=== PATIENT | female | born 1960 | race Caucasian/White ===

== ENCOUNTER 2019-02-01 09:45 | Emergency (ER) | payer BC, MEDICARE ==
[~2019-02-01] VITALS: Ht 167.6 cm; Wt 55.8 kg
[~2019-02-01 09:45] MED LIST: ALENDRONATE SOD70 MG PO; AMBIEN5 MG PO; AMIODARONE HCL200 MG PO; CARISOPRODOL350 MG PO; COZAAR25 MG PO; GABAPENTIN300 MG PO; HYDROCODON-ACE1 EAC5 PO; LEVAQUIN500 MG PO; LIDODERM700 MG TOP; LUNESTA3 MG PO; METOPROLOL SUCC50 MG PO; METRONIDAZOLE500 MG PO; MULTAQ400 MG PO; ONDANSETRON HCL4 MG PO; PANTOPRAZOLE SO40 MG PO; SYNTHROID25 MCG PO; VITAMIN D5000 UNIT PO; XARELTO15 MG PO; ZORVOLEX PO; [UNRECOGNIZED DRUG - OTHER] PO
--- OUTSIDE RECORDS SUMMARY | 2019-02-01 09:48 | XMS REPORT ---
Author Author [facility] Address Unknown Phone Unavailable Care Team Providers Care Forestry Foreman Name Role Phone VINCENT MOLINA Unavailable Unavailable Problems This patient has no known problems. Allergies, Adverse Reactions, Alerts This patient has no known allergies or adverse reactions. Medications This patient has no known medications. Results Test Description Test Time Test Comments Text Results Atomic Results Result Comments TROPONIN-I Quantitative 2018-09-22 05:29:00 Troponin-I (test code=TROP) <0.015 ng/ml 0.000-0.034 The 99th Percentile URL is 0.045 ng/mL for the Siemens [place] Troponin I. The Joint Society of Cardiology/[place] College of Cardiology (ESC/ACC) and the National Academy of Clinical Biochemistry Standards of Laboratory Practices (NACB) recommends that the diagnosis of AMI includes the presence of clinical history suggestive of Acute Coronary Syndrome (ACS) and a maximum concentration of cardiac troponin exceeding the 99th percentile of a normal reference population [upper reference limit (URL)] on at least one occasion during the first 24 hours after the clinical event. CBC WITH AUTO [id number] 05:24:00* Test Item Value Reference Range Comments WBC (test code=WBC) 6.07 10\S\3/ul 4.80-10.80 RBC (test code=RBC) 3.41 10\S\6/ul 4.20-5.40 Hemoglobin (test code=HGB) 11.8 gm/dl 12.0-14.0 Hematocrit (test code=HCT) 35.6 % 37.0-47.0 MCV (test code=MCV) 104.4 fL 81.0-99.0 MCH (test code=MCH) 34.6 pg 27.0-31.0 MCHC (test code=MCHC) 33.1 gm/dl 33.0-37.0 RDW (test code=RDWVC) 11.8 % 11.5-14.5 Platelet (test code=PLT) 175 10\S\3/ul 130-400 MPV (test code=MPV) 9.0 fL 7.4-10.4 NE% (test code=NE) 65.8 % 42.0-75.0 LY% (test code=LY) 25.9 % 13.0-42.0 MO% (test code=MO) 6.3 % 4.0-14.0 EO% (test code=EO) 1.0 % 1.0-5.0 BA% (test code=BA) 0.8 % 0.0-3.0 IG% (test code=IG%) 0.2 % 0.0-0.4 [id number] 05:24:00* Test Item Value Reference Range Comments Magnesium (test code=MG) 2.3 mg/dl 1.6-2.3 [id number] 05:24:00* Test Item Value Reference Range Comments Glucose (test code=GLU) 95 mg/dl 75-110 BUN (test code=BUN) 18.0 mg/dl 6.0-17.0 Creatinine (test code=CREA) 0.9 mg/dl 0.4-1.2 Sodium (test code=NA) 142 mmol/l 137-145 Potassium (test code=K) 3.6 mmol/l 3.5-5.0 Chloride (test code=CL) 110 mmol/l 98-107 CO2 (test code=CO2) 26 mmol/l 22-30 Calcium (test code=CALC) 8.8 mg/dl 8.4-10.2 T Protein (test code=TP) 7.6 gm/dl 5.1-8.7 Albumin (test code=ALB) 4.4 gm/dl 3.5-4.6 A/G Ratio (test code=AGRAT) 1.4 % 1.1-2.2 AST (SGOT) (test code=AST) 27 U/L 11-36 ALT (SGPT) (test code=ALT) 25 U/L 11-40 Alkaline Phos (test code=ALKP) 45 U/L 47-114 Total Bilirubin (test code=TBIL) 0.6 mg/dl 0.2-1.2 Globulin (test code=GLOBU) 3.2 gm/dl 2.3-3.5 Calcium, Corrected (test code=CALCCORR) 8.5 mg/dl 8.4-10.2 Various formulas exist for corrected serum calcium results, each yielding different values. This corrected result was based on the formula: Corrected Calcium=SerumCalcium + [0.8 * ( 4 - SerumAlbumin)] EGFR if (test code=EGFRAA) >60 mL/min/1.73m\S\2 EGFR if Non- (test code=EGFRNA) >60 mL/min/1.73m\S\2 Estimated Glomerular Filtration Rate (eGFR) Reference Intervals Decision Points for 18 years and older and average body mass: >=60 Does not exclude kidney disease. 30 - 59 Suggests moderate chronic kidney disease and indicates the need for further investigation including assessment of proteinuria and cardiovascular factors. < 30 Usually indicates a need for referral for assessment and management of chronic kidney failure. SCR MAMM BILATERAL YARI CAD [id number] 10:55:30 - SCR MAMM BILATERAL YARI CAD DIGITALBILATERAL DIGITAL SCREENING MAMMOGRAM 3D/2D WITH CAD: 03/24/2018CLINICAL: Asymptomatic. Digital breast tomosynthesis was performed in addition to routine CC and MLO views. Current mammographic images were evaluated by either a [employer] M-Vu or a [employer] ImageStoriecker CAD (computer aided detection system). Comparison is made to exam dated 09/29/2010 mammogram - [facility]. There are scattered fibroglandular tissues in both manuel sts. No suspicious mass, architectural distortion, malignant type calcification , or lymph node abnormality detected. Breast architecture is stable compared to prior exams.IMPRESSION: NEGATIVEThere is no mammographic evidence of malignancy. Resume annual screening mammography in one year. Laila sierra/tawanna nrad:04/08/2018 10:55:30 Panel Machine Setter: Helene AKERS, [facility]-FWletter sent: BIRADS 1-2 Normal Mammogram BI-RADS: 1 Negative
--- OUTSIDE RECORDS SUMMARY | 2019-02-01 09:48 | XMS REPORT | Summary of Care ---
Author Author [facility] - Health Organization [facility] - Health Address Unknown Phone Unavailable Care Team Providers Care Calculating Machine Operator Name Role Phone Mao Willett PCP Reason for Visit * Reason Comments Medical Records Encounter Details Care Team Description Date Type Department Shannon Wiggins MD [address] [place] [address]. 5[address] [place] [address] Medical Records 12/14/[address] [address] Allergies No Known Allergiesdocumented as of this encounter (statuses as of 12/14/2018) Medications End Date Status Medication Sig Dispensed Refills Start Date Active traMADOL (ULTRAM) 50 mg Take 1 Tab by 60 Tab 1 tablet mouth every 6 2 (six) hours. Active eszopiclone (LUNESTA) 3 Take 3 mg by 0 mg tablet mouth at bedtime. Active HYDROcodone-acetaminophen Take 1 Tab by 0 (NORCO) 10-325 mg tablet mouth every 6 (six) hours as needed. Active losartan (COZAAR) 50 mg Take 50 mg by 0 tablet mouth daily. Active gabapentin (NEURONTIN) Take 300 mg 0 300 mg capsule by mouth every 8 (eight) hours as needed. Active aspirin (LO-DOSE ASPIRIN) Take 81 mg by 0 81 mg EC tablet mouth daily. Active levothyroxine (SYNTHROID) Take 25 mcg 0 25 mcg tablet by mouth every morning. Active metoprolol succinate XL Take 50 mg by 0 (TOPROL XL) 50 mg 24 hr mouth daily. tablet documented as of this encounter (statuses as of 12/14/2018) Active Problems No known active problemsdocumented as of this encounter (statuses as of 12/14/2018) Social History Date Tobacco Use Types Packs/Day Years Used Light Tobacco Smoker 0.25 Smokeless Tobacco: Never Used Comments: 2 aday Drinks/Week oz/Week Comments Alcohol Use Not Currently Sex Assigned at Date Recorded Not on file Industry Job Start Date Occupation Not on file Not on file Not on file Travel End Travel History Travel Start No recent travel history available. documented as of this encounter Last Filed Vital Signs Not on filedocumented in this encounter Plan of Treatment Health Maintenance Due Date Last Done Comments HEPATITIS C (HCV) SCREEN 1962 PNEUMOCOCCAL 0-64 YEARS 1968 COMBINED SERIES (1 of 1 - PPSV23) DTaP,Tdap,and Td Vaccines 1981 (1 - Tdap) PAP SMEAR 10/18/1983 MAMMOGRAM 2002 COLONOSCOPY 2012 Zoster Recombinant 2012 Vaccine (SHINGRIX) (1 of 2) LUNG CANCER SCREEN: 2017 Recommended for age 55-80 with 30 + pack year history INFLUENZA VACCINE 01/08/2019 documented as of this encounter Results Not on filedocumented in this encounter Insurance Type Payer Benefit Subscriber ID Effective Phone Address Plan / Dates Group Medicare Adv PPO [facility] [id number] 2018-P MANAGED MEDICARE HEALTHCARE resent MEDICARE GOLD documented as of this encounter
--- OUTSIDE RECORDS SUMMARY | 2019-02-01 09:48 | XMS REPORT | Continuity of Care Document ---
Author Author [facility] Address [address] [place] [address] ;ext= Care Team Providers Care Inspector Hot Forgings Name Role Phone VINCENT MOLINA Admsunni VINCENT MOLINA [facility] Admission Diagnosis Code Admission Diagnosis Date [id number] Chest pain Social History Element Description Code Description Smoking Status Code System Start Date End Date Smoking Status [id number] Current every day smoker SNOMED-CT Problems Code Code System Problem Name Start Date End Date Status Muscle spasms 09/22/2018 Active Medications RxNorm Medication Dose Route Instructions Indications Start Date End Date Status [id number] Diazepam 5 MG Oral Tablet 5 milligram oral orally 2 times per day as needed. (for muscle spasm) Active Allergies * No Known Allergies Results Laboratory Results Order: CBC PLATELET AUTO DIFF Specimen Source: BLOOD Body Site: [facility] Test Result Flag Range Unit Date 1Leukocytes^^corrected for nucleated erythrocytes:NCnc:Pt:Bld:Qn:Automated count 6.07 4.80-10.80 10^3/ul 09/22/2018 04:52 789-8 1Erythrocytes:NCnc:Pt:Bld:Qn:Automated count 3.41 L 4.20-5.40 10^6/ul 09/22/2018 04:52 718-7 1Hemoglobin:MCnc:Pt:Bld:Qn 11.8 L 12.0-14.0 gm/dl 09/22/2018 04:52 4544-3 1Hematocrit:VFr:Pt:Bld:Qn:Automated count 35.6 L 37.0-47.0 % 09/22/2018 04:52 787-2 1Erythrocyte mean corpuscular volume:EntVol:Pt:RBC:Qn:Automated count 104.4 H 81.0-99.0 fL 09/22/2018 04:52 785-6 1Erythrocyte mean corpuscular hemoglobin:EntMass:Pt:RBC:Qn:Automated count 34.6 H 27.0-31.0 pg 09/22/2018 04:52 786-4 1Erythrocyte mean corpuscular hemoglobin concentration:MCnc:Pt:RBC:Qn:Automated count 33.1 33.0-37.0 gm/dl 09/22/2018 04:52 788-0 1Erythrocyte distribution width:Ratio:Pt:RBC:Qn:Automated count 11.8 11.5-14.5 % 09/22/2018 04:52 777-3 1Platelets:NCnc:Pt:Bld:Qn:Automated count 175 130-400 10^3/ul 09/22/2018 04:52 90268-6 1Platelet mean volume:EntVol:Pt:Bld:Qn:Automated count 9.0 A 7.4-10.4 fL 09/22/2018 04:52 770-8 1Neutrophils/100 leukocytes:NFr:Pt:Bld:Qn:Automated count 65.8 42.0-75.0 % 09/22/2018 04:52 736-9 1Lymphocytes/100 leukocytes:NFr:Pt:Bld:Qn:Automated count 25.9 13.0-42.0 % 09/22/2018 04:52 5905-5 1Monocytes/100 leukocytes:NFr:Pt:Bld:Qn:Automated count 6.3 4.0-14.0 % 09/22/2018 04:52 713-8 1Eosinophils/100 leukocytes:NFr:Pt:Bld:Qn:Automated count 1 1.0-5.0 % 09/22/2018 04:52 706-2 1Basophils/100 leukocytes:NFr:Pt:Bld:Qn:Automated count 0.8 0.0-3.0 % 09/22/2018 04:52 1IG% 0.2 0.0-0.4 % 09/22/2018 04:52 * Performing Lab Footnotes:* [address] [place], [place] [id number] - [address] [address] [facility] - MD: DIRECTOR TIMO WATKINS Order: CMP COMPREHENSIVE METABOLIC PANEL Specimen Source: BLOOD Body Site: INC Test Result Flag Range Unit Date 1Glucose 95 75-110 mg/dl 09/22/2018 04:52 1BUN 18 H 6.0-17.0 mg/dl 09/22/2018 04:52 1Creatinine 0.9 0.4-1.2 mg/dl 09/22/2018 04:52 1Sodium 142 137-145 mmol/l 09/22/2018 04:52 1Potassium 3.6 3.5-5.0 mmol/l 09/22/2018 04:52 1Chloride 110 H 98-107 mmol/l 09/22/2018 04:52 1CO2 26 22-30 mmol/l 09/22/2018 04:52 1Calcium 8.8 8.4-10.2 mg/dl 09/22/2018 04:52 1T Protein 7.6 5.1-8.7 gm/dl 09/22/2018 04:52 1Albumin 4.4 3.5-4.6 gm/dl 09/22/2018 04:52 1A/G Ratio 1.4 1.1-2.2 % 09/22/2018 04:52 1AST (SGOT) 27 11-36 U/L 09/22/2018 04:52 1ALT (SGPT) 25 11-40 U/L 09/22/2018 04:52 1Alkaline Phos 45 L 47-114 U/L 09/22/2018 04:52 1Total Bilirubin 0.6 0.2-1.2 mg/dl 09/22/2018 04:52 1Globulin 3.2 2.3-3.5 gm/dl 09/22/2018 04:52 1Calcium, Corrected 8.5 8.4-10.2 mg/dl 09/22/2018 04:52 Note: Various formulas exist for corrected serum calcium results, each yielding different values. This corrected result was based on the formula: Corrected Calcium=SerumCalcium + [0.8 * ( 4 - SerumAlbumin)] 1EGFR if >60 mL/min/1.73m^2 09/22/2018 04:52 1EGFR if Non- >60 mL/min/1.73m^2 09/22/2018 04:52 Note: Estimated Glomerular Filtration Rate (eGFR) Reference Intervals Decision Points for 18 years and older and average body mass: >=60 Does not exclude kidney disease. 30 - 59 Suggests moderate chronic kidney disease and indicates the need for further investigation including assessment of proteinuria and cardiovascular factors. < 30 Usually indicates a need for referral for assessment and management of chronic kidney failure. * Performing Lab Footnotes:* [address] [place], [place] [id number] [place] [address] DEBRA Fournier MD: DIRECTOR TIMO WATKINS Order: MAGNESIUM SERUM Specimen Source: BLOOD Body Site: LOINC Test Result Flag Range Unit Date 1Magnesium 2.3 1.6-2.3 mg/dl 09/22/2018 04:52 * Performing Lab Footnotes:* [address] [place], [place] [id number] [place] [address] DEBRA Fournier MD: DIRECTOR TIMO WATKINS Order: TROPONIN I QUANTITATIVE Specimen Source: BLOOD Body Site: LOINC Test Result Flag Range Unit Date 1Troponin-I <0.015 0.000-0.034 ng/ml 09/22/2018 04:52 Note: The 99th Percentile URL is 0.045 ng/mL for the Siemens [place] Troponin I. The Joint Society of Cardiology/[place] College of Cardiology (ESC/ACC) and the National [...] first 24 hours after the clinical event. * Performing Lab Footnotes:* [address] [place] [address] - [id number] - [address] [place] [address] DEBRA - MD: DIRECTOR TIMO WATKINS Vital Signs Vitals Value Date Body Temperature 97.9 F 09/22/2018 Pulse Rate 73 (beats)/min 09/22/2018 Respiratory Rate 17 (breaths)/min 09/22/2018 O2% BldC Oximetry 99 % 09/22/2018 BP Systolic 140 mmHg 09/22/2018 BP Diastolic 78 mmHg 09/22/2018 Height 67 in 09/22/2018 Weight Measured 120 lbs 09/22/2018 BSA (Body Surface Area) 1.17834 m2 09/22/2018 BMI (Body Mass Index) 18.8 kg/m2 09/22/2018 Advance Directives Patient does NOT have Living Will Directive Type Effective Date Plasma Processing Centrifuge Operator Notes Supporting Document Name Address Phone No Directive Type specified 09/22/2018 04:44 Not Specified Not Specified Not Specified None No Family History * No Data Reported Plan of Care * No data in the system Procedures * No data in the system Encounters Date Code Diagnosis Status (ICD10) - I16353 OTHER MUSCLE SPASM Active Immunizations * No data in the system Functional Status * No data in the system Hospital Discharge Instructions * Discharge Instructions 2* Discharge Diagnosis* muscle spasm * Important Information* Consult your physician or return to the Emergency Department immediately if worse, if not better as expected, or if any problems arise. * Follow Up Care* Yes * Important Information* Please understand that you have received care only on an emergency basis. If your condition does not improve, you should call your personal physician for follow-up care. If you do not have a physician, you may call the referred physician listed. * If you have questions about your care or these discharge instructions, you may call the Emergency Department. Please take your discharge paperwork with you to any follow-up appointments. * Follow-Up With:* Primary Care Physician * Follow-Up Notes:* follow up with pcp in 1-2 days * Activity Level* As tolerated, unrestricted * Diet* Regular * Prescriptions Given Via:* Printed and given to patient/caregiver. * Patient Teaching* Patient education provided * Disease Process * Change in Care * Procedures/Treatments * Pain Control
--- OUTSIDE RECORDS SUMMARY | 2019-02-01 09:48 | XMS REPORT | Summary of Care ---
Author Author [facility] - Health Organization [facility] - Health Address Unknown Phone Unavailable Care Team Providers Care Hatchery Employee Name Role Phone Mao Willett PCP Reason for Visit * Reason Comments Follow-up Encounter Details Care Team Description Date Type Department Shannon Wiggins MD [address] [place] [address]. [address] [place] [address] Cervical radiculopathy (Primary Dx) 12/07/2018 Office Visit [facility] Neurosurgery, [address] [address] Allergies No Known Allergiesdocumented as of this encounter (statuses as of 12/07/2018) Medications End Date Status Medication Sig Dispensed [...] as of this encounter (statuses as of 12/07/2018) Active Problems No known active problemsdocumented as of this encounter (statuses as of 12/07/2018) Social History Date Tobacco Use Types Packs/Day [...] of this encounter Last Filed Vital Signs Reading Time Taken Comments Vital Sign - - Blood Pressure - - Pulse - - Temperature - - Respiratory Rate - - Oxygen Saturation - - Inhaled Oxygen Concentration 54.4 kg (120 lb) 12/07/2018 2:08 PM CDT Weight 170.2 cm (5' 7") 12/07/2018 2:08 PM CDT Height 18.79 12/07/2018 2:08 PM CDT Body Mass Index documented in this encounter Progress Notes * Shannon Wiggins MD - 12/07/2018 2:20 PM CDT Neurosurgery Follow Up Clinic Note 12/07/2018 HPI: Ana Palma is a 58 year old woman following up in neurosurgery clinic for CT myelogram Cspine. She states that she continues to have pain in her mid-low back all the way down her back and down her left lateral thigh, not all the way down to her feet as before. But, she states she lives with back pain all the time. She had to get a new mattress because she has been having worse pain. She contin ues to have diffuse neck pain as well. She also has numbness and paraesthesias i n a nondermatomal distribution in her arms as well and her left leg. Current Medications: Current Outpatient Medications on File Prior to Visit Medication Sig Dispense Refill aspirin (LO-DOSE ASPIRIN) 81 mg EC tablet Take 81 mg by mouth daily. eszopiclone (LUNESTA) 3 mg tablet Take 3 mg by mouth at bedtime. gabapentin (NEURONTIN) 300 mg capsule Take 300 mg by mouth every 8 (eight) h ours as needed. HYDROcodone-acetaminophen (NORCO) 10-325 mg tablet Take 1 Tab by mouth every 6 (six) hours as needed. levothyroxine (SYNTHROID) 25 mcg tablet Take 25 mcg by mouth every morning. losartan (COZAAR) 50 mg tablet Take 50 mg by mouth daily. metoprolol succinate XL (TOPROL XL) 50 mg 24 hr tablet Take 50 mg by mouth d aily. traMADOL (ULTRAM) 50 mg tablet Take 1 Tab by mouth every 6 (six) hours. 60 T ab 1 No current facility-administered medications on file prior to visit. Review of Systems Constitutional: negative Eyes: negative Ears: negative Nose/Sinuses: negative Mouth/Throat: negative Cardiovascular: negative Respiratory: negative Gastrointestinal: negative Genitourinary: negative Musculoskeletal: Low back pain and left leg pain Integumentary: negative Neuro: Numbness and paraesthesias in arms, left leg Physical Exam: Vitals: 12/07/18 1408 Weight: 120 lb (54.4 kg) Height: 5' 7" (1.702 m) Normocephalic Moves all extremities symmetrically Imaging: CT myelogram Cspine 11/2018 was reviewed with the patient and does not show any s ignificant spinal stenosis or neuroforaminal stenosis. She has bony fusion from previous C3-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 Assessment/Plan: Ana Palma is a 58 year old female with neck pain and low back and leg pain. Results of CT myelogram were shown and explained to the patient. She does not n eed surgical intervention at this time for cervical spine. She is in agreement f or conservative management. She continues to follow with pain management for ANA s. She has not done PT in a while and she was given a script for aqua therapy. Follow up in neurosurgery clinic in 2-3 months. Shannon Wiggins M.D., Ph.D. Neurosurgery Pager: [phone] 12/07/2018 documented in this encounter Plan of Treatment Health [...] Results Not on filedocumented in this encounter Visit Diagnoses Diagnosis Cervical radiculopathy - Primary Brachial neuritis or radiculitis nos documented in this encounter Insurance Type Payer Benefit Subscriber ID Effective Phone Address Plan / Dates Group Medicare Adv PPO [facility] [id number] 2018-P MANAGED MEDICARE HEALTHCARE resent MEDICARE [place] documented as of this encounter
--- OUTSIDE RECORDS SUMMARY | 2019-02-01 09:48 | XMS REPORT | Summary of Care ---
Author Author [facility] - Health Organization [facility] - Health Address Unknown Phone Unavailable Care Team Providers Care Blade Grader Operator Name Role Phone Mao Willett PCP Reason for Visit * Reason Comments Follow-up Encounter Details Care Team Description Date Type Department Shannon Wiggins MD [address] [place] [address]. [address] [place] [address] Cervical radiculopathy (Primary Dx) 12/07/2018 Office Visit [facility] Neurosurgery, [address] [address] Allergies No Known Allergiesdocumented as [...] fusion from previous C3-[address] myelogram Lsocala shows left L5-S1 disc herniation with left [...] months. Shannon Wiggins M.D., Ph.D. Neurosurgery Pager: [phone] 12/07/2018 documented in this encounter Plan of [...] Plan / Dates Group Medicare Adv PPO [facility] [id number] 2018-P MANAGED MEDICARE HEALTHCARE resent MEDICARE [place] documented as of this encounter
[2019-02-01 10:27] LABS: BASOPHILS # (AUTO) 0.1 (0.0-0.1); BASOPHILS % 1.2 % (0.0-1.0); EOSINOPHILS # (AUTO) 0.1 (0.0-0.4); HEMATOCRIT 37.9 % (34.2-44.1); HEMOGLOBIN 12.6 g/dL (12.0-16.0); LYMPHOCYTES # (AUTO) 1.5 (1.0-3.2); MEAN CORPUSCULAR HEMOGLOBIN 36.5 pg (28-32); MEAN CORPUSCULAR HGB CONC 33.2 g/dL (31-35); MEAN CORPUSCULAR VOLUME 109.9 fL (81-99); MONOCYTES # (AUTO) 0.2 (0.2-0.8); MONOCYTES % 4.4 % (4.4-11.3); NEUTROPHILS # (AUTO) 3.1 (2.1-6.9); PLATELET COUNT 177 x10e3/uL (140-360); RED BLOOD COUNT 3.45 x10e6/uL (3.6-5.1); RED CELL DISTRIBUTION WIDTH 11.4 % (11.7-14.4)
[2019-02-01 10:33] LABS: BILIRUBIN,URINE NEGATIVE (NEGATIVE); CLARITY,URINE SL CLOUDY (CLEAR); COLOR,URINE YELLOW (YELLOW); KETONES,URINE NEGATIVE (NEGATIVE); LEUKOCYTE ESTERASE ,URINE NEGATIVE (NEGATIVE); NITRITE,URINE NEGATIVE (NEGATIVE); PROTEIN,URINE DIPSTICK TRACE (NEGATIVE); URINE UROBILINOGEN 0.2 mg/dL (0.2 - 1)
[2019-02-01 10:36] LABS: INR 0.95; PROTHROMBIN TIME 13.2 seconds (11.9-14.5)
--- NOTE | 2019-02-01 10:36 | Diagnostic Imaging Report ---
EXAMINATION: CHEST SINGLE (PORTABLE) INDICATION: Headache. Hypertension. ^HTN ^[id number] ^1014 COMPARISON: None FINDINGS: TUBES and LINES: Left chest dual lead cardiac device. LUNGS: Lungs are well inflated. Lungs are clear. There is no evidence of pneumonia or pulmonary edema. PLEURA: No pleural effusion or pneumothorax. HEART AND MEDIASTINUM: The cardiomediastinal silhouette is unremarkable. BONES AND SOFT TISSUES: No acute osseous lesion. Soft tissues are unremarkable. UPPER ABDOMEN: No free air under the diaphragm. IMPRESSION: No acute thoracic abnormality. Signed by: Dr. Andrea Morales M.D. on 02/01/2019 10:32 AM
[2019-02-01 10:37] LABS: PARTIAL THROMBOPLASTIN TIME 31.4 seconds (23.8-35.5)
[2019-02-01 10:44] LABS: ALBUMIN/GLOBULIN RATIO 1.4 (0.8-2.0); ANION GAP 11.1 mmol/L (8-16); CALCIUM 9.4 mg/dL (8.4-10.2); CREATININE, SERUM 1.06 mg/dL (0.57-1.11); MAGNESIUM 2.1 MG/DL (1.3-2.1); POTASSIUM 4.1 mmol/L (3.5-5.1)
[2019-02-01 10:48] LABS: BACTERIA,URINE RARE /HPF; EPITHELIAL CELLS,URINE FEW /LPF; RBC,URINE 0-5 /HPF (0-5); WBC,URINE (MAN) 0-5 /HPF (0-5)
[2019-02-01] MEDS ORDERED: KETOROLAC TROMETHAMINE 30 MG/ML VIAL IV ONE (11:05)
[2019-02-01] MEDS ORDERED: DIPHENHYDRAMINE HCL INJ 50 MG/ML VIAL IV ONE (11:15)
[2019-02-01] MEDS ORDERED: METOCLOPRAMIDE HCL 10 MG/2ML VIAL IV ONE (11:15)
[2019-02-01] MEDS ORDERED: SODIUM CHLORIDE 0.9% 500ML 500 ML IV ONE (11:15)
--- NOTE | 2019-02-01 11:56 | Diagnostic Imaging Report ---
Exam: Head CT without contrast History: Headache Comparison studies: None Technique: Axial images were obtained from the skull base to the vertex. Coronal and sagittal images reconstructed from the axial data. Dose modulation, iterative reconstruction, and/or weight based adjustment of the mA/kV was utilized to reduce the radiation dose to as low as reasonably achievable. Radiation dose: Total DLP: 921 mGy*cm. Estimated effective dose: DLP x 0.015 Intravenous contrast: None Findings: Scalp: No abnormalities. Bones: No fractures, blastic or lytic lesions. Brain sulci: Appropriate for age. Ventricles: Normal in size and configuration. No hydrocephalus. Extra-axial spaces: No masses, no fluid collection. Parenchyma: No abnormal densities. No masses, acute hemorrhage, acute or chronic vascular insults. Sellar/suprasellar region: No abnormalities. Craniocervical junction: Patent foramen magnum. No Chiari one malformation. Included paranasal sinuses: Clear. Incidental aplastic left frontal sinus, an anatomical variant. IMPRESSION: No intracranial abnormalities. Signed by: Dr. Db Russo M.D. on 02/01/2019 10:47 AM
[2019-02-01 13:52] VITALS: BP 164/87
== END 2019-02-01 13:55 | disposition home or self-care (01) ==
LOC: ER 09:47
DX: G44.211 Episodic tension-type headache, intractable (principal)
CPT/HCPCS: 36415; 70450; 71045; 80053; 81001; 82550; 82553; 83735; 83880; 84484; 85025; 85610; 85730; 87086; 93005; 99284; J1200; J1885; J2765; J7040

== ENCOUNTER 2020-02-29 07:39 | Observation (INO) | payer MEDICARE, OTHER ==
[~2020-02-29] VITALS: Ht 167.6 cm; Wt 55.8 kg
[2020-02-29] VITALS (7 sets, daily range): BP systolic 111–153; BP diastolic 70–102
[2020-02-29] MEDS ORDERED: ONDANSETRON HCL INJ 2MG/ML 2ML 2 MG/ML VIAL IV STA (08:03)
[2020-02-29] MEDS ORDERED: MORPHINE SULFATE INJ 4 MG/ML INJ 1ML IV ONE (08:15)
[2020-02-29 08:18] LABS: BASOPHILS # (AUTO) 0.1 (0.0-0.1); BASOPHILS % 1.3 % (0.0-1.0); EOSINOPHILS # (AUTO) 0.2 (0.0-0.4); EOSINOPHILS % 3.3 % (0.0-6.0); HEMATOCRIT 39.4 % (34.2-44.1); HEMOGLOBIN 12.7 g/dL (12.0-16.0); LYMPHOCYTES # (AUTO) 1.6 (1.0-3.2); LYMPHOCYTES % 34.9 % (18.0-39.1); MEAN CORPUSCULAR HEMOGLOBIN 34.9 pg (28-32); MEAN CORPUSCULAR HGB CONC 32.2 g/dL (31-35); MEAN CORPUSCULAR VOLUME 108.2 fL (81-99); MONOCYTES # (AUTO) 0.3 (0.2-0.8); MONOCYTES % 6.6 % (4.4-11.3); NEUTROPHILS # (AUTO) 2.4 (2.1-6.9); NEUTROPHILS % 53.7 % (38.7-80.0); PLATELET COUNT 172 x10e3/uL (140-360); RED BLOOD COUNT 3.64 x10e6/uL (3.6-5.1); RED CELL DISTRIBUTION WIDTH 11.4 % (11.7-14.4)
[2020-02-29] MEDS ORDERED: SODIUM CHLORIDE 0.9% 500ML 500 ML ONE (08:27)
[2020-02-29 08:44] LABS: ALANINE AMINOTRANSFERASE 35 IU/L (0-55); ALBUMIN 4.4 g/dL (3.5-5.0); ALBUMIN/GLOBULIN RATIO 1.8 (0.8-2.0); ALKALINE PHOSPHATASE 43 IU/L (40-150); ANION GAP 14.1 mmol/L (8-16); BLOOD UREA NITROGEN 18 mg/dL (7-26); BUN/CREATININE RATIO 21 (6-25); CALCIUM 9.1 mg/dL (8.4-10.2); CARBON DIOXIDE 27 mmol/L (22-29); CHLORIDE 105 mmol/L (98-107); CREATINE KINASE 621 IU/L (29-168); CREATININE, SERUM 0.87 mg/dL (0.57-1.11); EST GLOMERULAR FILTRATION RATE > 60 ML/MIN (60-); GLUCOSE 96 mg/dL (74-118); POTASSIUM 4.1 mmol/L (3.5-5.1); SODIUM 142 mmol/L (136-145)
[2020-02-29] MEDS ORDERED: IOPAMIDOL 370 MG/ML 200 ML INFUS..BTL INJ ONE (08:59)
[2020-02-29] MEDS ORDERED: SODIUM CHLORIDE 0.9% 50ML 50 ML ONE (08:59)
[2020-02-29 09:30] LABS: CLARITY,URINE CLEAR (CLEAR); COLOR,URINE YELLOW (YELLOW)
[2020-02-29 09:31] LABS: BILIRUBIN,URINE NEGATIVE (NEGATIVE); KETONES,URINE TRACE (NEGATIVE); LEUKOCYTE ESTERASE ,URINE NEGATIVE (NEGATIVE); NITRITE,URINE NEGATIVE (NEGATIVE); PROTEIN,URINE DIPSTICK NEGATIVE (NEGATIVE); URINE UROBILINOGEN 0.2 mg/dL (0.2 - 1)
[2020-02-29 09:47] LABS: WBC,URINE (MAN) 0-5 /HPF (0-5)
[2020-02-29 09:48] LABS: BACTERIA,URINE RARE /HPF; EPITHELIAL CELLS,URINE FEW /LPF
[2020-02-29] MEDS ORDERED: LUNESTA1 MG PO (12:58)
[2020-02-29] MEDS ORDERED: METHOCARBAMOL750 MG PO (12:58)
[2020-02-29] MEDS ORDERED: HYDROCODON-ACE1 EAC9 PO (12:58)
[2020-02-29] MEDS: SODIUM CHLORIDE 0.9% 1000ML 1,000 ML IV SCH (13:20)
[2020-02-29] MEDS ORDERED: METHOCARBAMOL 750 MG TAB PO PRN (13:45)
[2020-02-29] MEDS ORDERED: HYDROMORPHONE 1MG/1ML INJ IV PRN (13:45)
[2020-02-29] MEDS ORDERED: NON-FORMULARY MEDICATION (Cholecalciferol (Vitamin D3) (Vitamin D) 50,000 UNIT) PO SCH (13:45)
[2020-02-29] MEDS: HYDROCODONE/APAP 10MG-325MG TAB PO SCH ×2 (17:02→22:58)
[2020-02-29] MEDS: ZOLPIDEM TARTRATE 5 MG TAB PO SCH (20:43)
[2020-02-29] MEDS ORDERED: ESZOPICLONE 5 MG PO SCH (21:00)
[2020-02-29] MEDS ORDERED: PANTOPRAZOLE SOD 40 MG TABEC PO SCH (21:00)
[2020-03-01] VITALS (8 sets, daily range): BP systolic 105–151; BP diastolic 70–85
[2020-03-01] MEDS: SODIUM CHLORIDE 0.9% 1000ML 1,000 ML IV SCH ×4 (00:19→18:35)
[2020-03-01] MEDS: METOCLOPRAMIDE HCL 10 MG/2ML VIAL IV SCH ×4 (02:00→17:33)
[2020-03-01] MEDS: HYDROCODONE/APAP 10MG-325MG TAB PO SCH ×3 (06:00→17:33)
[2020-03-01 06:11] LABS: BASOPHILS % 0.8 % (0.0-1.0); EOSINOPHILS # (AUTO) 0.2 (0.0-0.4); EOSINOPHILS % 4.1 % (0.0-6.0); HEMATOCRIT 32.1 % (34.2-44.1); HEMOGLOBIN 10.3 g/dL (12.0-16.0); LYMPHOCYTES # (AUTO) 1.7 (1.0-3.2); LYMPHOCYTES % 43.7 % (18.0-39.1); MEAN CORPUSCULAR HEMOGLOBIN 34.9 pg (28-32); MEAN CORPUSCULAR HGB CONC 32.1 g/dL (31-35); MEAN CORPUSCULAR VOLUME 108.8 fL (81-99); MONOCYTES # (AUTO) 0.3 (0.2-0.8); NEUTROPHILS # (AUTO) 1.7 (2.1-6.9); NEUTROPHILS % 44.1 % (38.7-80.0); PLATELET COUNT 123 x10e3/uL (140-360); RED BLOOD COUNT 2.95 x10e6/uL (3.6-5.1); RED CELL DISTRIBUTION WIDTH 11.3 % (11.7-14.4)
[2020-03-01] MEDS: LEVOTHYROXINE SODIUM 25 MCG TABLET PO SCH (06:22)
[2020-03-01] MEDS: METRONIDAZOLE 500MG/NS 100ML 100 ML IV SCH ×3 (06:22→22:33)
[2020-03-01 06:37] LABS: ALANINE AMINOTRANSFERASE 25 IU/L (0-55); ALBUMIN 3.3 g/dL (3.5-5.0); ALBUMIN/GLOBULIN RATIO 1.7 (0.8-2.0); ALKALINE PHOSPHATASE 38 IU/L (40-150); ANION GAP 11.3 mmol/L (8-16); BLOOD UREA NITROGEN 16 mg/dL (7-26); BUN/CREATININE RATIO 22 (6-25); CALCIUM 7.9 mg/dL (8.4-10.2); CARBON DIOXIDE 26 mmol/L (22-29); CHLORIDE 109 mmol/L (98-107); CREATINE KINASE 329 IU/L (29-168); CREATININE, SERUM 0.74 mg/dL (0.57-1.11); EST GLOMERULAR FILTRATION RATE > 60 ML/MIN (60-); GLUCOSE 74 mg/dL (74-118); LIPASE 7 U/L (8-78); MAGNESIUM 2.2 MG/DL (1.3-2.1); POTASSIUM 4.3 mmol/L (3.5-5.1); SODIUM 142 mmol/L (136-145)
[2020-03-01] MEDS: LACTOBACILLUS ACIDOPHILUS CAPSULE PO SCH ×3 (07:54→22:33)
[2020-03-01] MEDS: PANTOPRAZOLE 40 MG 10ML VIAL IV SCH ×2 (08:51→22:33)
[2020-03-01] MEDS: METOPROLOL SUCCINATE 50 MG TAB XL PO SCH (11:04)
[2020-03-01] MEDS: LOSARTAN POTASSIUM 25 MG TAB PO SCH (11:04)
[2020-03-01] MEDS: AMIODARONE HCL 200 MG TAB PO SCH (11:04)
[2020-03-01] MEDS ORDERED: PROPOFOL IV EMULSION 10 MG/ML 20 ML VIAL ONE (12:28)
[2020-03-01] MEDS: ZOLPIDEM TARTRATE 5 MG TAB PO SCH (21:00)
[2020-03-01] MEDS ORDERED: BISACODYL 5 MG TAB EC PO ONE ×2 (23:15→23:45)
[2020-03-02] MEDS ORDERED: BISACODYL 5 MG TAB EC PO ONE ×2 (00:15→00:45)
[2020-03-02] MEDS: METOCLOPRAMIDE HCL 10 MG/2ML VIAL IV SCH ×5 (00:50→23:56)
[2020-03-02] MEDS: SODIUM CHLORIDE 0.9% 1000ML 1,000 ML IV SCH ×3 (02:30→17:42)
[2020-03-02 04:43] VITALS: BP 138/77
[2020-03-02] MEDS ORDERED: CITRATE OF MAGNESIA 300ML BOTTLE PO ONE ×3 (05:00→11:00)
[2020-03-02 06:15] LABS: BASOPHILS # (AUTO) 0.1 (0.0-0.1); BASOPHILS % 1.3 % (0.0-1.0); EOSINOPHILS # (AUTO) 0.2 (0.0-0.4); EOSINOPHILS % 3.8 % (0.0-6.0); HEMATOCRIT 38.4 % (34.2-44.1); HEMOGLOBIN 12.5 g/dL (12.0-16.0); LYMPHOCYTES # (AUTO) 1.1 (1.0-3.2); LYMPHOCYTES % 24.3 % (18.0-39.1); MEAN CORPUSCULAR HEMOGLOBIN 34.6 pg (28-32); MEAN CORPUSCULAR HGB CONC 32.6 g/dL (31-35); MEAN CORPUSCULAR VOLUME 106.4 fL (81-99); MONOCYTES # (AUTO) 0.3 (0.2-0.8); MONOCYTES % 7.1 % (4.4-11.3); NEUTROPHILS # (AUTO) 2.8 (2.1-6.9); NEUTROPHILS % 63.1 % (38.7-80.0); PLATELET COUNT 158 x10e3/uL (140-360); RED BLOOD COUNT 3.61 x10e6/uL (3.6-5.1); RED CELL DISTRIBUTION WIDTH 11.1 % (11.7-14.4)
[2020-03-02 06:32] LABS: ALANINE AMINOTRANSFERASE 26 IU/L (0-55); ALBUMIN/GLOBULIN RATIO 1.7 (0.8-2.0); ALKALINE PHOSPHATASE 34 IU/L (40-150); ANION GAP 10.7 mmol/L (8-16); BLOOD UREA NITROGEN 6 mg/dL (7-26); BUN/CREATININE RATIO 8 (6-25); CALCIUM 9.2 mg/dL (8.4-10.2); CARBON DIOXIDE 24 mmol/L (22-29); CHLORIDE 111 mmol/L (98-107); CREATININE, SERUM 0.78 mg/dL (0.57-1.11); EST GLOMERULAR FILTRATION RATE > 60 ML/MIN (60-); GLUCOSE 81 mg/dL (74-118); POTASSIUM 3.7 mmol/L (3.5-5.1); SODIUM 142 mmol/L (136-145)
[2020-03-02] MEDS: HYDROCODONE/APAP 10MG-325MG TAB PO SCH ×5 (06:43→23:57)
[2020-03-02] MEDS: LEVOTHYROXINE SODIUM 25 MCG TABLET PO SCH (06:43)
[2020-03-02] MEDS: METRONIDAZOLE 500MG/NS 100ML 100 ML IV SCH ×3 (06:43→21:31)
[2020-03-02 07:16] LABS: FERRITIN 52.7 ng/mL (4.63-204.00)
[2020-03-02] MEDS: LACTOBACILLUS ACIDOPHILUS CAPSULE PO SCH ×3 (07:25→20:09)
[2020-03-02 08:00] VITALS: BP 126/85
[2020-03-02] MEDS: PANTOPRAZOLE 40 MG 10ML VIAL IV SCH ×2 (08:11→21:31)
[2020-03-02] MEDS: AMIODARONE HCL 200 MG TAB PO SCH (09:00)
[2020-03-02] MEDS: METOPROLOL SUCCINATE 50 MG TAB XL PO SCH (09:00)
[2020-03-02] MEDS: LOSARTAN POTASSIUM 25 MG TAB PO SCH (09:00)
[2020-03-02 10:28] VITALS: BP 126/85
[2020-03-02 13:01] LABS: WBC,FECAL (FECAL LACTOFERRIN) NEGATIVE (NEGATIVE)
[2020-03-02 16:00] VITALS: BP 137/92
[2020-03-02] MEDS: ZOLPIDEM TARTRATE 5 MG TAB PO SCH (20:08)
[2020-03-02 20:39] VITALS: BP 110/87
[2020-03-02 20:54] VITALS: BP 110/87
[2020-03-03 00:22] VITALS: BP 103/66
[2020-03-03] MEDS ORDERED: SODIUM CHLORIDE FLUSH 10 ML SYR INJ PRN (01:45)
[2020-03-03] MEDS: SODIUM CHLORIDE 0.9% 1000ML 1,000 ML IV SCH (02:30)
[2020-03-03] MEDS: HYDROCODONE/APAP 10MG-325MG TAB PO SCH ×2 (05:30→12:24)
[2020-03-03] MEDS: METRONIDAZOLE 500MG/NS 100ML 100 ML IV SCH ×2 (05:30→14:48)
[2020-03-03] MEDS: LEVOTHYROXINE SODIUM 25 MCG TABLET PO SCH (05:30)
[2020-03-03] MEDS: METOCLOPRAMIDE HCL 10 MG/2ML VIAL IV SCH ×2 (05:30→12:24)
[2020-03-03 05:43] VITALS: BP 102/89
[2020-03-03] MEDS ORDERED: ALENDRONATE SODIUM 70 MG TAB PO SCH (06:30)
[2020-03-03] MEDS: LACTOBACILLUS ACIDOPHILUS CAPSULE PO SCH ×2 (09:00→14:48)
[2020-03-03] MEDS ORDERED: ERGOCALCIFEROL 50,000 UNIT CAP PO SCH (09:00)
[2020-03-03] MEDS: METOPROLOL SUCCINATE 50 MG TAB XL PO SCH (09:00)
[2020-03-03 09:03] VITALS: BP 135/80
[2020-03-03] MEDS: AMIODARONE HCL 200 MG TAB PO SCH (09:20)
[2020-03-03] MEDS: LOSARTAN POTASSIUM 25 MG TAB PO SCH (09:20)
[2020-03-03] MEDS: PANTOPRAZOLE 40 MG 10ML VIAL IV SCH (09:21)
[2020-03-03 10:21] VITALS: BP 135/80
[2020-03-03 12:10] LABS: C DIFFICILE TOXIN A&B AMP PROB **POSITIVE** (NEGATIVE)
[2020-03-03 13:20] VITALS: BP 138/80
[2020-03-03] MEDS ORDERED: MIDAZOLAM HCL 2 MG/2 ML VIAL ONE (14:33)
[2020-03-03] MEDS ORDERED: FENTANYL CITRATE/PF 100MCG/2 ML INJ ONE (14:33)
[2020-03-03] MEDS ORDERED: METRONIDAZOLE500 MG PO (16:54)
[2020-03-03] MEDS ORDERED: Vancomycin PO (16:56)
[2020-03-03 17:04] VITALS: BP 154/116
== END 2020-03-03 17:23 | disposition home or self-care (01) ==
LOC: ER 08:06 → ERHOLD 10:33 → MED/SURG3 12:17
PROVIDERS: ADMIT Family Medicine; ATTEND Family Medicine
DX: K29.70 Gastritis, unspecified, without bleeding (principal); K21.00 Gastro-esophageal reflux disease with esophagitis, without bleeding; D61.818 Other pancytopenia; K63.5 Polyp of colon; K64.8 Other hemorrhoids; E03.9 Hypothyroidism, unspecified; I10 Essential (primary) hypertension; M81.0 Age-related osteoporosis without current pathological fracture; Z82.3 Family history of stroke; Z80.3 Family history of malignant neoplasm of breast; Z82.49 Family history of ischemic heart disease and other diseases of the circulatory system
CPT/HCPCS: 36415 ×3; 43239; 45380; 45385; 74177; 78227; 80053 ×3; 81001; 82550 ×2; 82553; 82607; 82728; 82746; 83540; 83630; 83690 ×2; 83735; 83993; 84466; 84484; 85025 ×3; 85045; 85651; 86140; 86256; 86301; 86671; 87045; 87177; 87328; 87493; 88305; 88312; 99284; A9537; C9113 ×3; G0378 ×4; J1170; J2250; J2270; J2405; J2704; J2765 ×3; J3010; J7030 ×3; J7040; Q9967; S0164; U0002; 45378

== ENCOUNTER → 2020-09-20 | Outpatient (CLI) | payer MEDICARE ==
[~2020-09-20] MED LIST changes: +HYDROCODON-ACE1 EAC9 PO; +IOPAMIDOL 300 MG/ML 15ML VIAL IT ONE; +LIDOCAINE HCL 1% LOCAL INJ 20 ML VIAL ONE; +LUNESTA1 MG PO; +METHOCARBAMOL750 MG PO; +Vancomycin PO
[2020-09-20 08:57] LABS: HEMOGLOBIN 12.5 g/dL (12.0-16.0)
[2020-09-20 09:12] LABS: INR 0.9; PROTHROMBIN TIME 12.7 seconds (11.9-14.5)
[2020-09-20 09:13] LABS: PARTIAL THROMBOPLASTIN TIME 31.5 seconds (23.8-35.5)
== END ==
LOC: DX 08:38
PROVIDERS: ATTEND Family Medicine
DX: M54.12 Radiculopathy, cervical region (principal); M54.16 Radiculopathy, lumbar region
CPT/HCPCS: 36415; 62305; 72126; 72132; 85014; 85049; 85610; 85730; J2001; Q9967

== ENCOUNTER → 2020-12-10 | Outpatient (CLI) | payer MEDICARE ==
[~2020-12-10] MED LIST changes: -IOPAMIDOL 300 MG/ML 15ML VIAL IT ONE; -LIDOCAINE HCL 1% LOCAL INJ 20 ML VIAL ONE
== END ==
LOC: CT 10:48
PROVIDERS: ATTEND Nurse Practitioner Family
DX: G44.319 Acute post-traumatic headache, not intractable (principal)
CPT/HCPCS: 70450

== ENCOUNTER → 2022-05-27 | Outpatient (CLI) | payer MEDICARE | LOC: CT 10:38 | PROVIDERS: ATTEND Family Medicine | DX: R51.9 Headache, unspecified (principal) | CPT/HCPCS: 70450 ==

== ENCOUNTER → 2022-11-13 | Outpatient (CLI) | payer MEDICARE ==
[~2022-11-13] MED LIST changes: +IOPAMIDOL 370 MG/ML 100 ML INFUS..BTL INJ ONE
[2022-11-13 15:25] LABS: CREATININE, SERUM 0.87 mg/dL (0.57-1.11)
== END ==
LOC: CT 14:33
PROVIDERS: ATTEND Family Medicine
DX: K58.2 Mixed irritable bowel syndrome (principal)
CPT/HCPCS: 36415; 74177; 82565; 84520; Q9967